=== PATIENT | female | born 1980 | race African-American/Black ===

== ENCOUNTER 2017-05-22 07:10 | Emergency (ER) | payer BC ==
[2017-05-22] MEDS ORDERED: Ketorolac Tromethamine 60 MG/2 ML VIAL ONE (08:06)
== END 2017-05-22 08:14 | disposition home or self-care (01) ==
LOC: ERS 07:10
DX: M62.830 Muscle spasm of back (principal); I10 Essential (primary) hypertension; D50.0 Iron deficiency anemia secondary to blood loss (chronic); K21.9 Gastro-esophageal reflux disease without esophagitis; Z79.899 Other long term (current) drug therapy; Z79.84 Long term (current) use of oral hypoglycemic drugs
CPT/HCPCS: 99283; J1885

== ENCOUNTER 2024-01-08 09:09 | Emergency (ER) | payer BC ==
[2024-01-08] MEDS ORDERED: Ketorolac Tromethamine 30 MG (1 mL) VIAL ONE (10:17)
== END 2024-01-08 11:43 | disposition home or self-care (01) ==
LOC: ERS 09:09
DX: M25.561 Pain in right knee (principal); E11.9 Type 2 diabetes mellitus without complications; I10 Essential (primary) hypertension; K21.9 Gastro-esophageal reflux disease without esophagitis; Z55.6 Problems related to health literacy; Z79.84 Long term (current) use of oral hypoglycemic drugs; Z79.899 Other long term (current) drug therapy
CPT/HCPCS: 96372; 99283; J1885